=== PATIENT | female | born 1985 ===

== ENCOUNTER 2021-03-24 06:15 | Day surgery (SDC) | payer OTHER, BC | END 2021-03-24 11:45 | disposition home or self-care (01) | LOC: CIR.AMB 06:15 | PROVIDERS: ATTEND Orthopaedic Surgery | DX: M75.122 Complete rotator cuff tear or rupture of left shoulder, not specified as traumatic (principal); Z20.822 Contact with and (suspected) exposure to COVID-19 ==

== ENCOUNTER 2022-12-27 08:31 | Outpatient (CLI) | payer OTHER | END 2022-12-27 08:39 | disposition home or self-care (01) | LOC: SONOGRAMA 08:31 | PROVIDERS: ATTEND Obstetrics & Gynecology Reproductive Endocrinology | DX: N93.8 Other specified abnormal uterine and vaginal bleeding (principal) ==